=== PATIENT | female | born 1970 | race Caucasian/White ===

== ENCOUNTER 2016-07-23 10:27 | Emergency (ER) | payer MEDICAID, OTHER ==
[2016-07-23 10:39] VITALS: BP 120/70
--- NOTE | 2016-07-23 11:14 | UC ---
Throat Pain/Nasal Patrick HPI - HPI Summary HPI Summary: sore throat, cough for 2 weeks, some sinus pressure - History of Current Complaint Chief Complaint: UCRespiratory Stated Complaint: SORE THROAT, EAR PAIN Time Seen by Provider: 07/23/16 10:46 Hx Obtained From: Patient Hx Last Menstrual Period: 2001 ?: No Onset/Duration: Sudden Onset, Lasting Weeks Severity: Moderate Pain Intensity: 6 Pain Scale Used: 0-10 Numeric Cough: Nonproductive Associated Signs & Symptoms: Positive: Dysphagia, Wheezing, Hoarseness, Sinus Discomfort Related History: Smoking - Epiglottits Risk Factors Epiglottis Risk Factors: Negative - Allergies/Home Medications Allergies/Adverse Reactions: Allergies Allergy/AdvReac Type Severity Reaction Status Date / Time Erythromycin Allergy Difficulty Verified 07/23/16 10:40 Breathing Oxycodone Allergy Dizziness Verified 07/23/16 10:40 seasonal Allergy Congestion Uncoded 07/23/16 10:40 Home Medications: Home Medications Bisacodyl EC TAB* [Dulcolax EC TAB*] 5 mg PO DAILY PRN 07/23/16 [History Confirmed 07/23/16] PMH/Surg Hx/FS Hx/Imm Hx Previously Healthy: No Respiratory History Of: Reports: Asthma - Surgical History Surgical History: Yes Surgery Procedure, Year, and Place: hysterectomy partial, c sect x2, lithotripsy , appy - Family History Known Family History: Positive: Cardiac Disease, Hypertension - Social History Alcohol Use: None Substance Use Type: None Smoking Status (MU): Never Smoked Tobacco Review of Systems Constitutional: Negative Skin: Negative Eyes: Negative ENT: Sore Throat, Nasal Discharge Respiratory: Shortness Of Breath, Cough Cardiovascular: Negative Gastrointestinal: Negative Genitourinary: Negative Motor: Negative Neurovascular: Negative Musculoskeletal: Negative Neurological: Headache Psychological: Negative All Other Systems Reviewed And Are Negative: Yes Physical Exam Triage Information Reviewed: Yes Appearance: Well-Nourished, Ill-Appearing, Pain Distress Vital Signs: Initial Vital Signs Temp 98.5 F 07/23/16 10:36 Pulse 65 07/23/16 10:36 Resp 16 07/23/16 10:36 BP 120/70 07/23/16 10:36 Pulse Ox 99 07/23/16 10:36 Vital Signs Reviewed: Yes Eye Exam: Normal Eyes: Positive: Conjunctiva Clear ENT: Positive: Hearing grossly normal, Pharyngeal erythema, Nasal congestion, TMs normal, Muffled/hoarse voice Dental Exam: Normal Neck exam: Normal Neck: Positive: Supple, Nontender, No Lymphadenopathy Respiratory Exam: Normal Respiratory: Positive: No respiratory distress, No accessory muscle use, Wheezing, Inspiration Cardiovascular Exam: Normal Cardiovascular: Positive: RRR, No Murmur, Pulses Normal Abdominal Exam: Normal Abdomen Description: Positive: Nontender, No Organomegaly, Soft Bowel Sounds: Positive: Present Musculoskeletal Exam: Normal Musculoskeletal: Positive: Strength Intact, ROM Intact, No Edema Neurological Exam: Normal Neurological: Positive: Alert, Muscle Tone Normal Psychological Exam: Normal Skin Exam: Normal Throat Pain/Nasal Course/Dx - Course Course Of Treatment: history obtained, medications reviewed, exam performed, medications prescribed, educated on spacer use with albuterol inhaler that she currently uses. - Differential Dx/Diagnosis Differential Diagnosis/HQI/PQRI: Influenza, Laryngitis, Otitis Media, Pharyngitis, Sinusitis, Tonsillitis, URI Provider Diagnoses: Bronchitis. pharyngitis Discharge - Discharge Plan Condition: Stable Disposition: HOME Prescriptions: guaiFENesin/CODIEN 100MG-10MG* [Robitussin AC 100Mg-10Mg*] 5 ml PO BEDTIME PRN # 50 ml MDD 5 ml PRN Reason: Cough predniSONE TAB* [Deltasone TAB*] 40 mg PO DAILY #10 tab Patient Education Materials: Acute Bronchitis (ED) Referrals: Sujata Llanes PA [Primary Care Provider] - Additional Instructions: increase your fluid intake take the medications as prescribed ibuprofen or tylenol for pain and fever salt water gargles, honey and resting your voice will help with the sore throat.
== END 2016-07-23 11:19 | disposition home or self-care (01) ==
LOC: UCCORT 10:27
DX: J40 Bronchitis, not specified as acute or chronic (principal); J02.9 Acute pharyngitis, unspecified; Z88.1 Allergy status to other antibiotic agents; Z88.5 Allergy status to narcotic agent
CPT/HCPCS: 99212; G0463

== ENCOUNTER 2018-11-09 08:25 | Emergency (ER) | payer MEDICAID, OTHER ==
[2018-11-09 08:48] VITALS: BP 124/81
--- NOTE | 2018-11-09 08:55 | UC ---
Dental HPI - HPI Summary HPI Summary: dental pain left lower back x 2 days pain is 7 out of 10 , worse with chewing, better with rest and not eating , no fever, no chills, + fatigue, dizziness called her dentist but they didn't call her back yet - History of Current Complaint Chief Complaint: UCDentalProblem Stated Complaint: DIZZINESS DENTAL PAIN Time Seen by Provider: 11/09/18 08:39 Hx Obtained From: Patient Hx Last Menstrual Period: 2001 ?: No Onset/Duration: Gradual Onset, Lasting Days - 2, Still Present Severity: Moderate Pain Intensity: 6 Aggravating Factor(s): Cold, Chewing Alleviating Factor(s): Nothing Dental: 1 - pain - Allergies/Home Medications Allergies/Adverse Reactions: Allergies Allergy/AdvReac Type Severity Reaction Status Date / Time erythromycin base Allergy Difficulty Verified 11/09/18 08:43 Breathing oxycodone Allergy Dizziness Verified 11/09/18 08:43 Home Medications: Home Medications Albuterol 2.5MG/3ML (0.083%)* [Ventolin 2.5 MG/3 ML NEB.KIKI*] 2.5 mg INH Q6H PRN 11/09/18 [History Confirmed 11/09/18] FLUoxetine CAP* [PROzac CAP*] 40 mg PO QAM 11/09/18 [History Confirmed 11/09/18] Meclizine TAB* [Antivert 12.5 TAB*] 25 mg PO TID PRN 11/09/18 [History Confirmed 11/09/18] Naproxen TAB* [Naprosyn 250 mg TAB*] 500 mg PO Q12H PRN 11/09/18 [History Confirmed 11/09/18] busPIRone TAB* [Buspar TAB*] 10 mg PO QAM 11/09/18 [History Confirmed 11/09/18] PMH/Surg Hx/FS Hx/Imm Hx - Additional Past Medical History Additional PMH: Anxiety, Constipation, Depression, Nephrolithiasis, Vertigo Respiratory History: Asthma Psychological History: Anxiety, Depression - Surgical History Surgical History: Yes Surgery Procedure, Year, and Place: hysterectomy partial, c sect x2, lithotripsy , appy - Family History Known Family History: Positive: Cardiac Disease, Hypertension - Social History Alcohol Use: None Substance Use Type: None Smoking Status (MU): Never Smoked Tobacco Review of Systems All Other Systems Reviewed And Are Negative: Yes Constitutional: Positive: Negative Skin: Positive: Negative Eyes: Positive: Negative ENT: Positive: Dental Pain Respiratory: Positive: Negative Cardiovascular: Positive: Negative Is Patient Immunocompromised?: No Physical Exam Triage Information Reviewed: Yes Appearance: Well-Appearing, No Pain Distress, Well-Nourished Vital Signs: Initial Vital Signs Temp 97.4 F 11/09/18 08:41 Pulse 70 11/09/18 08:41 Resp 15 11/09/18 08:41 BP 124/81 11/09/18 08:41 Pulse Ox 99 11/09/18 08:41 Vital Signs Reviewed: Yes Eye Exam: Normal Eyes: Positive: Conjunctiva Clear ENT: Positive: Normal ENT inspection, Hearing grossly normal, Pharynx normal, TMs normal Dental: Positive: Percussion Tenderness @ - #20, Gross Decay/Caries @ - #20 Neck: Positive: Supple, Nontender, No Lymphadenopathy Respiratory: Positive: Chest non-tender, Lungs clear, Normal breath sounds Cardiovascular: Positive: RRR, No Murmur, Pulses Normal, Brisk Capillary Refill Abdominal Exam: Normal Dental Complaint Course/Dx - Differential Dx/Diagnosis Provider Diagnosis: Dental caries Discharge - Sign-Out/Discharge Documenting (check all that apply): Patient Departure All imaging exams completed and their final reports reviewed: No Studies - Discharge Plan Condition: Stable Disposition: HOME Prescriptions: Clindamycin Cap(NF) [Clindamycin Cap 300 mg Cap(NF)] 300 mg PO TID #21 cap Patient Education Materials: Toothache (ED) Referrals: Sujata Llanes PA [Primary Care Provider] - Additional Instructions: follow up with your dentist melodie - Billing Disposition and Condition Condition: STABLE Disposition: Home
== END 2018-11-09 09:03 | disposition home or self-care (01) ==
LOC: UCCORT 08:25
DX: K02.9 Dental caries, unspecified (principal); F41.9 Anxiety disorder, unspecified; F32.9 Major depressive disorder, single episode, unspecified; N20.0 Calculus of kidney; R42 Dizziness and giddiness; Z88.1 Allergy status to other antibiotic agents; Z88.5 Allergy status to narcotic agent
CPT/HCPCS: 99212; G0463

== ENCOUNTER 2019-01-12 08:39 | Emergency (ER) | payer OTHER ==
[2019-01-12 08:54] VITALS: BP 103/77
--- NOTE | 2019-01-12 09:07 | UC ---
Hand/Wrist HPI - HPI Summary HPI Summary: right middle finger pain x 10 day pain and swelling and redness distal middle finger, 7 out of 10 in severity , worse with touch , better with warm water soakes poked with needle to get pus out , no fever, no chills - History Of Current Complaint Chief Complaint: UCWounds Stated Complaint: RIGHT MIDDLE FINGER CONCERN Time Seen by Provider: 01/12/19 08:56 Hx Obtained From: Patient Hx Last Menstrual Period: 2001 Onset/Duration: Gradual Onset, Lasting Days - 10, Still Present Severity Initially: Moderate Severity Currently: Moderate Pain Intensity: 7 Character Of Pain: Aching, Throbbing Aggravating Factor(s): Movement Alleviating Factor(s): Compression Associated Signs And Symptoms: Positive: Swelling, Redness - Allergies/Home Medications Allergies/Adverse Reactions: Allergies Allergy/AdvReac Type Severity Reaction Status Date / Time erythromycin base Allergy Difficulty Verified 11/09/18 08:43 Breathing oxycodone Allergy Dizziness Verified 11/09/18 08:43 PMH/Surg Hx/FS Hx/Imm Hx - Additional Past Medical History Additional PMH: Anxiety, Constipation, Depression, Nephrolithiasis, Vertigo, hx of kidney stones Endocrine History: Diabetes Respiratory History: Asthma - Surgical History Surgical History: Yes Surgery Procedure, Year, and Place: hysterectomy partial, c sect x2, lithotripsy , appy - Family History Known Family History: Positive: Cardiac Disease, Hypertension - Social History Alcohol Use: None Substance Use Type: None Smoking Status (MU): Never Smoked Tobacco Review of Systems All Other Systems Reviewed And Are Negative: Yes Constitutional: Positive: Negative Skin: Positive: Negative Eyes: Positive: Negative Is Patient Immunocompromised?: No Physical Exam Triage Information Reviewed: Yes Appearance: Well-Appearing, No Pain Distress, Well-Nourished Vital Signs: Initial Vital Signs Temp 97.9 F 01/12/19 08:48 Pulse 56 01/12/19 08:48 Resp 18 01/12/19 08:48 BP 103/77 01/12/19 08:48 Pulse Ox 100 01/12/19 08:48 Vital Signs Reviewed: Yes Eye Exam: Normal Eyes: Positive: Conjunctiva Clear ENT: Positive: Normal ENT inspection, Hearing grossly normal, Pharynx normal Neck: Positive: Supple, Nontender, No Lymphadenopathy Respiratory: Positive: Chest non-tender, Lungs clear, Normal breath sounds Cardiovascular: Positive: RRR, No Murmur, Pulses Normal Skin: Positive: Other - paronychia right middle finger : + erythema, swelling , tender to touch Hand/Wrist Course/Dx - Differential Dx/Diagnosis Provider Diagnosis: Paronychia of finger of right hand Discharge - Sign-Out/Discharge Documenting (check all that apply): Patient Departure All imaging exams completed and their final reports reviewed: No Studies - Discharge Plan Condition: Stable Disposition: HOME Prescriptions: Cephalexin CAP* [Keflex CAP*] 500 mg PO TID #21 cap Patient Education Materials: Paronychia (ED) Referrals: Pankaj Armstrong MD [Primary Care Provider] - If Needed - Billing Disposition and Condition Condition: STABLE Disposition: Home
== END 2019-01-12 09:05 | disposition home or self-care (01) ==
LOC: UCCORT 08:39
DX: L03.011 Cellulitis of right finger (principal); E11.9 Type 2 diabetes mellitus without complications; Z88.1 Allergy status to other antibiotic agents; Z88.5 Allergy status to narcotic agent
CPT/HCPCS: 99212; G0463

== ENCOUNTER 2019-05-05 08:15 | Emergency (ER) | payer OTHER ==
[2019-05-05 08:29] VITALS: BP 104/70
--- NOTE | 2019-05-05 08:57 | UC ---
Throat Pain/Nasal Patrick HPI - HPI Summary HPI Summary: 49-year-old woman coming in with chief complaint of upper respiratory tract infection symptoms and sore throat for 5 days. Throat hurts more when she swallows. She is having ear pain and rhinorrhea. No recent fevers measured. - History of Current Complaint Chief Complaint: UCGeneralIllness Stated Complaint: ST, BI LAT EAR PAIN Time Seen by Provider: 05/05/19 08:42 Hx Last Menstrual Period: 2001 Pain Intensity: 8 - Allergies/Home Medications Allergies/Adverse Reactions: Allergies Allergy/AdvReac Type Severity Reaction Status Date / Time erythromycin base Allergy Difficulty Verified 05/05/19 08:28 Breathing oxycodone Allergy Dizziness Verified 05/05/19 08:28 Home Medications: Home Medications Guaifen/Dextromethorphan/PE [Tusslin 10-388 mg/5Ml] 1 liq PO DAILY PRN [History Confirmed 05/05/19] PMH/Surg Hx/FS Hx/Imm Hx Previously Healthy: Yes Respiratory History: Asthma - Surgical History Surgical History: Yes Surgery Procedure, Year, and Place: hysterectomy partial, c sect x2, lithotripsy , appy - Family History Known Family History: Positive: Cardiac Disease, Hypertension - Social History Alcohol Use: None Substance Use Type: None Smoking Status (MU): Never Smoked Tobacco Review of Systems All Other Systems Reviewed And Are Negative: Yes Constitutional: Positive: Other - SEE HPI Skin: Positive: Negative Eyes: Positive: Negative ENT: Positive: Sore Throat, Ear Ache, Nasal Discharge Respiratory: Positive: Negative Cardiovascular: Positive: Negative Gastrointestinal: Positive: Negative Motor: Positive: Negative Neurovascular: Positive: Negative Musculoskeletal: Positive: Negative Neurological: Positive: Negative Psychological: Positive: Negative Is Patient Immunocompromised?: No Physical Exam Triage Information Reviewed: Yes Appearance: No Pain Distress, Well-Nourished, Ill-Appearing - MILD Vital Signs: Initial Vital Signs Temp 97.4 F 05/05/19 08:24 Pulse 71 05/05/19 08:24 Resp 18 05/05/19 08:24 BP 104/70 05/05/19 08:24 Pulse Ox 99 05/05/19 08:24 Vital Signs Reviewed: Yes Eye Exam: Normal Eyes: Positive: Conjunctiva Clear ENT: Positive: Pharyngeal erythema, Nasal congestion, TMs normal Neck: Positive: Supple Respiratory: Positive: Lungs clear, Normal breath sounds, No respiratory distress Cardiovascular: Positive: RRR Musculoskeletal: Positive: Strength Intact, ROM Intact Neurological: Positive: Alert, Muscle Tone Normal Psychological: Positive: Age Appropriate Behavior Skin Exam: Normal Throat Pain/Nasal Course/Dx - Differential Dx/Diagnosis Provider Diagnosis: Strep pharyngitis Discharge ED - Sign-Out/Discharge Documenting (check all that apply): Patient Departure All imaging exams completed and their final reports reviewed: No Studies - Discharge Plan Condition: Stable Disposition: HOME Prescriptions: Cephalexin SUSP* [Keflex SUSP 250 MG/5 ML*] 500 mg PO BID #200 ml Patient Education Materials: Strep Throat (ED) Referrals: Pankaj Armstrong MD [Primary Care Provider] - Additional Instructions: FOLLOW UP WITH YOUR DOCTOR IF NOT COMPLETELY IMPROVED. GET REEVALUATED SOONER IF NOT IMPROVING OR YOUR CONDITION WORSENS OR ANY QUESTIONS OR CONCERNS. - Billing Disposition and Condition Condition: STABLE Disposition: Home
== END 2019-05-05 09:01 | disposition home or self-care (01) ==
LOC: UCCORT 08:15
DX: J02.0 Streptococcal pharyngitis (principal); J45.909 Unspecified asthma, uncomplicated; H92.09 Otalgia, unspecified ear; R09.81 Nasal congestion; Z88.0 Allergy status to penicillin; Z88.5 Allergy status to narcotic agent
CPT/HCPCS: 87651; 99212; G0463

== ENCOUNTER 2019-09-12 08:27 | Emergency (ER) | payer OTHER ==
[2019-09-12 08:44] VITALS: BP 110/69
--- NOTE | 2019-09-12 09:14 | UC ---
Respiratory Complaint HPI - HPI Summary HPI Summary: Pt presents with c/o cough, nasal congestion, and right upper abdominal right lower rib pain that began after leaning over a pack and play crib. Pt denies trauma to area. - History of Current Complaint Chief Complaint: UCRespiratory Stated Complaint: SORE THROAT EARS RIGHT ABDOMINAL PAIN Time Seen by Provider: 09/12/19 08:59 Hx Obtained From: Patient Hx Last Menstrual Period: 2001 ?: No Onset/Duration: Sudden Onset - for rib pain, Gradual Onset - for URI like symptoms, Lasting Days, Still Present Timing: Constant Severity Initially: Mild Severity Currently: Moderate Pain Intensity: 7 Character: Cough: Productive, Sputum Description: - yellow/orange Aggravating Factors: Exertion, Deep Breaths, Recumbent Position Alleviating Factors: Nothing Associated Signs And Symptoms: Positive: URI, Nasal Congestion - Risk Factors Pulmonary Embolism Risk Factors: Negative Cardiac Risk Factors: Negative Pseudomonas Risk Factors: Chronic Lung Disease - asthma Tuberculosis Risk Factors: Negative - Allergies/Home Medications Allergies/Adverse Reactions: Allergies Allergy/AdvReac Type Severity Reaction Status Date / Time erythromycin base Allergy Difficulty Verified 09/12/19 08:39 Breathing oxycodone Allergy Dizziness Verified 09/12/19 08:39 Home Medications: Home Medications Albuterol HFA INHALER* [Ventolin HFA Inhaler*] 1 - 2 puff INH Q4H PRN 08/17/14 [ History Confirmed 09/12/19] Multivitamin [Multivitamins] 1 tab PO QAM 08/17/14 [History Confirmed 09/12/19] Senna TAB 8.6 mg* [Senokot 8.6 mg TAB*] 2 tab PO BEDTIME 08/17/14 [History Confirmed 09/12/19] Bisacodyl EC TAB* [Dulcolax EC TAB*] 10 mg PO QAM 07/23/16 [History Confirmed ] Albuterol 2.5MG/3ML (0.083%)* [Ventolin 2.5 MG/3 ML NEB.KIKI*] 2.5 mg INH Q6H PRN 11/09/18 [History Confirmed 09/12/19] FLUoxetine CAP* [Prozac CAP*] 40 mg PO QAM 11/09/18 [History Confirmed 09/12/19] Naproxen TAB* [Naprosyn 250 mg TAB*] 500 mg PO Q12H PRN 11/09/18 [History Confirmed 09/12/19] busPIRone TAB* [Buspar TAB*] 10 mg PO QAM 11/09/18 [History Confirmed 09/12/19] predniSONE 10 mg TAB [Deltasone 10 MG TAB*] 30 mg PO DAILY #12 tab 09/12/19 [Rx] PMH/Surg Hx/FS Hx/Imm Hx Previously Healthy: Yes Respiratory History: Asthma Psychological History: Anxiety, Depression - Surgical History Surgical History: Yes Surgery Procedure, Year, and Place: hysterectomy partial, c sect x2, lithotripsy , appy - Family History Known Family History: Positive: Cardiac Disease, Hypertension - Social History Occupation: Employed Full-time Lives: With Family Alcohol Use: None Substance Use Type: None Smoking Status (MU): Never Smoked Tobacco Have You Smoked in the Last Year: No Review of Systems All Other Systems Reviewed And Are Negative: Yes Constitutional: Positive: Chills, Fatigue Skin: Positive: Negative Eyes: Positive: Negative ENT: Positive: Nasal Discharge, Sinus Congestion Respiratory: Positive: Cough Cardiovascular: Positive: Negative Gastrointestinal: Positive: Abdominal Pain - RUQ/Right lower rib Genitourinary: Positive: Negative Motor: Positive: Negative Neurovascular: Positive: Negative Musculoskeletal: Positive: Arthralgia - right lower rib/anterior Neurological/Mental Status: Positive: Negative Psychological: Positive: Negative Is Patient Immunocompromised?: No Physical Exam Triage Information Reviewed: Yes Appearance: Well-Appearing Vital Signs: Initial Vital Signs Temp 98.6 F 09/12/19 08:36 Pulse 70 09/12/19 08:36 Resp 16 09/12/19 08:36 BP 110/69 09/12/19 08:36 Pulse Ox 99 09/12/19 08:36 Vital Signs Reviewed: Yes Eye Exam: Normal ENT: Positive: Nasal congestion Dental Exam: Normal Neck exam: Normal Respiratory Exam: Normal Respiratory: Positive: Normal breath sounds Cardiovascular Exam: Normal Abdomen Description: Positive: Other: - RUQ Musculoskeletal: Positive: Other: - Right anterior rib number 8-10 Neurological Exam: Normal Psychological Exam: Normal Skin Exam: Normal Respiratory Course/Dx - Differential Dx/Diagnosis Differential Diagnosis/HQI/PQRI: Bronchitis, Influenza Provider Diagnosis: Viral syndrome, Rib pain on right side Discharge ED - Sign-Out/Discharge Documenting (check all that apply): Patient Departure All imaging exams completed and their final reports reviewed: No Studies - Discharge Plan Condition: Stable Disposition: HOME Prescriptions: predniSONE 10 mg TAB [Deltasone 10 MG TAB*] 30 mg PO DAILY #12 tab Patient Education Materials: Viral Syndrome (ED), Abdominal Pain (ED), Rib Contusion (ED) Referrals: Sujata Llanes PA [Primary Care Provider] - If Needed - Billing Disposition and Condition Condition: STABLE Disposition: Home - Attestation Statements Provider Attestation: This patient was not seen by me. I was available for consult. Chart reviewed. [email or web address]
== END 2019-09-12 09:24 | disposition home or self-care (01) ==
LOC: UCCORT 08:27
DX: B34.9 Viral infection, unspecified (principal); R07.81 Pleurodynia; R53.83 Other fatigue; R05 Cough; J45.909 Unspecified asthma, uncomplicated; F32.9 Major depressive disorder, single episode, unspecified; F41.9 Anxiety disorder, unspecified; R09.89 Other specified symptoms and signs involving the circulatory and respiratory systems; Z79.899 Other long term (current) drug therapy; R10.11 Right upper quadrant pain; Z88.5 Allergy status to narcotic agent; Z88.1 Allergy status to other antibiotic agents; Z79.52 Long term (current) use of systemic steroids
CPT/HCPCS: 99212; G0463